=== PATIENT | female | born 1995 | race Caucasian/White ===

== ENCOUNTER 2020-04-14 20:06 | Emergency (ER) | payer OTHER, SELFPAY ==
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
[2020-04-14 20:14] VITALS: BP 134/90; PULSE 110; RESP 18; TEMP 37.2; O2SAT 100
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
[2020-04-14 21:50] VITALS: BP 116/80; PULSE 83; RESP 16; TEMP 36.7; O2SAT 99
--- NOTE | 2020-04-14 22:41 | PC.NURSE ---
Pt given ice pack for chest discomfort, no obvious scars upon assessment.
== END 2020-04-14 21:50 | disposition home or self-care (01) ==
PROVIDERS: Emergency Provider Emergency Medicine
DX: S22.22XA Fracture of body of sternum, initial encounter for closed fracture (principal); V49.40XA Driver injured in collision with unspecified motor vehicles in traffic accident, initial encounter
CPT/HCPCS: 71046; 71120; 99283

== ENCOUNTER 2020-04-20 14:00 | Outpatient (CLI) | payer OTHER, SELFPAY ==
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
== END 2020-04-20 14:01 | disposition home or self-care (01) ==
PROVIDERS: PCP Emergency Medicine; Visit Provider Emergency Medicine
DX: S22.20XA Unspecified fracture of sternum, initial encounter for closed fracture (principal)
CPT/HCPCS: 71250